=== PATIENT | male | born 1970 | race Caucasian/White ===

== ENCOUNTER → 2018-09-12 | Outpatient (REF) ==
[2018-09-12 14:41] LABS: THYROID STIMULATING HORMONE 1.32 uIU/mL (0.465-4.680)
[2018-09-12 14:49] LABS: PSA-TOTAL 0.81 ng/mL (0-4)
== END ==
LOC: ZLAB.WCH 13:58
PROVIDERS: Family Medicine
DX: Z01.89 Encounter for other specified special examinations (principal)
CPT/HCPCS: G0103

== ENCOUNTER → 2023-02-01 | Outpatient (CLI) | payer OTHER ==
[~2023-02-01] MED LIST: CEPHALEXIN500 M1 PO; LEVAQUIN 5500 MG/TA1 PO
== END ==
LOC: COL.RAD 07:02
DX: M50.021 Cervical disc disorder at C4-C5 level with myelopathy (principal); M50.022 Cervical disc disorder at C5-C6 level with myelopathy; M50.023 Cervical disc disorder at C6-C7 level with myelopathy; G95.89 Other specified diseases of spinal cord; D86.89 Sarcoidosis of other sites; R20.0 Anesthesia of skin; R53.1 Weakness; R25.2 Cramp and spasm; G82.50 Quadriplegia, unspecified
CPT/HCPCS: A9575

== ENCOUNTER 2023-02-15 22:53 | Emergency (ER) | payer OTHER ==
[~2023-02-15] VITALS: Ht 177.8 cm; Wt 68.2 kg
[2023-02-16 03:28] LABS: COLLECTION METHOD IN
[2023-02-16 04:25] LABS: URINE APPEARANCE Turbid (CLEAR/HAZY); URINE COLOR OTHER (YELLOW); URINE GLUCOSE Negative (NEGATIVE); URINE KETONE TRACE (NEGATIVE); URINE PROTEIN(semi-quant) 3+ (NEGATIVE)
[2023-02-16 04:26] LABS: URINE BLOOD 3+ (NEGATIVE); URINE NITRATE Positive (NEGATIVE)
[2023-02-16 04:30] LABS: SQUAMOUS EPITHELIAL 0-2 /hpf (0-10); URINE RBC >50 /hpf (0-2)
[2023-02-16 04:31] LABS: URINE BACTERIA Many /hpf (NONE SEEN)
[2023-02-16 05:04] VITALS: BP 105/75; PULSE 71; TEMP 97.6
[2023-02-16] MEDS ORDERED: LIORESAL 1010 MG/TAB PO (10:48)
[2023-02-16] MEDS ORDERED: LIORESAL20 MG PO (10:58)
[2023-02-16] MEDS ORDERED: ZANAFLEX2 MG PO (11:03)
[2023-02-16] MEDS ORDERED: GRALISE300 MG PO (11:07)
[2023-02-16] MEDS ORDERED: TYLENOL 500MG500 MG PO (11:08)
[2023-02-16] MEDS ORDERED: ROXICODONE 55 MG/TAB PO (11:09)
[2023-02-16] MEDS ORDERED: OXAYDO7.5 MG PO (11:11)
[2023-02-16] MEDS ORDERED: ALDACTONE 25MG25 M1 PO (11:11)
[2023-02-16] MEDS ORDERED: MELATONIN5 M1 SL (11:12)
[2023-02-16] MEDS ORDERED: TOPROL XL 25MG25 MG PO (11:12)
[2023-02-16] MEDS ORDERED: COLACE 100100 MG/CAP PO (11:13)
[2023-02-16] MEDS ORDERED: SENNA8.8 MG/5 M PO ×2 (11:14→11:15)
[2023-02-16] MEDS ORDERED: CONSTULOSE 20G/30ML PO (11:15)
[2023-02-16] MEDS ORDERED: ZANAFLEX 4MG TAB4 MG PO (11:21)
[2023-02-16] MEDS ORDERED: OMNICEF 300MG300 MG PO (13:17)
== END 2023-02-16 05:04 | disposition home or self-care (01) ==
LOC: COL.ER 22:53
PROVIDERS: Emergency Medicine
DX: T83.518A Infection and inflammatory reaction due to other urinary catheter, initial encounter (principal)

== ENCOUNTER 2023-02-16 09:30 | Day surgery (SDC) | payer OTHER ==
[~2023-02-16] VITALS: Ht 177.8 cm; Wt 65.0 kg
[2023-02-16] VITALS (7 sets, daily range): BP systolic 100–106; BP diastolic 62–91; PULSE 73–99; TEMP 97–97.3
[2023-02-16] MEDS ORDERED: LIORESAL 1010 MG/TAB PO (10:48)
--- NOTE | 2023-02-16 10:54 | NUR ---
DORA GEE CRNA PRESENT IN PATIENT ROOM TO DISCUSS PATIENT'S MEDICAL HISTORY AND ANESTHESIA PLAN FOR TODAY. PATIENT'S SPOUSE, ERIC, PRESENT IN ROOM. PER ERIC CERVANTES CAN GIVE THE PATIENT HIS AFTERNOON MEDS (BACLOFEN AND OXYCODONE). SEE MED REC FOR DETAILS.
[2023-02-16] MEDS ORDERED: LIORESAL20 MG PO (10:58)
[2023-02-16] MEDS ORDERED: ZANAFLEX2 MG PO (11:03)
[2023-02-16] MEDS ORDERED: GRALISE300 MG PO (11:07)
[2023-02-16] MEDS ORDERED: TYLENOL 500MG500 MG PO (11:08)
[2023-02-16] MEDS ORDERED: ROXICODONE 55 MG/TAB PO (11:09)
[2023-02-16] MEDS ORDERED: OXAYDO7.5 MG PO (11:11)
[2023-02-16] MEDS ORDERED: ALDACTONE 25MG25 M1 PO (11:11)
[2023-02-16] MEDS ORDERED: MELATONIN5 M1 SL (11:12)
[2023-02-16] MEDS ORDERED: TOPROL XL 25MG25 MG PO (11:12)
[2023-02-16] MEDS ORDERED: COLACE 100100 MG/CAP PO (11:13)
[2023-02-16] MEDS ORDERED: SENNA8.8 MG/5 M PO ×2 (11:14→11:15)
[2023-02-16] MEDS ORDERED: CONSTULOSE 20G/30ML PO (11:15)
[2023-02-16] MEDS ORDERED: ZANAFLEX 4MG TAB4 MG PO (11:21)
[2023-02-16] MEDS ORDERED: OMNICEF 300MG300 MG PO (13:17)
--- NOTE | 2023-02-16 14:25 | NUR ---
PATIENTS , ERIC, CALLED TO REQUEST TO LEAVE PATIENT'S IV IN FOR IVIG INFUSION THIS WEDNESDAY. PATIENT IS DIFFICULT TO GET IV ACCESS ON. SPOKE WITH SIDE GLUER ÁNGEL Wright RN ABOUT AUGUSTO REQUEST. INFORMED BY ÁNGEL Wright RN THAT A PROVIDER ORDER WOULD BE NEEDED FOR THIS TO BE COMPLETED. 1337: MET WITH DR. SINGH AND GOT ORDER THAT THE PATIENT COULD BE DISCHARGED HOME WITH IV FOR INFUSION ON WEDNESDAY. CALL PLACED TO DR. SINHG FOR HEPARIN FLUSH ORDERS. SEE ORDERS FOR ORDERS TO HEPARIN FLUSH IV AND DISCHARGE PATIENT TO HOME WITH IV IN PLACE. ÁNGEL VILLANUEVA ALSO SPOKE WITH REGARDING THE ORDERS TO DISCHARGE PATIENT HOME WITH IV.
--- NOTE | 2023-02-16 19:12 | NUR ---
[id number]: PT TO RECOVERY BAY 6 FROM PACU S/P SUPRAPUBIC CATH PLACEMENT OSTOMY SITE INTACT, DRAIN GAUZE JUST CHANGED IN PACU (SAT WITH CLEAR TO PINK FLUID (BLADDER SPASMS WITH FRESH OSTOMY). BROUGHT OT BEDSIDE UPON ARRIVAL L&O, PLACED ON MONITOR, VSS ON RA RECEIVED REPORT AND ASSUMED CARE OF PT FROM DEYANIRA CERON PT A&O X 4, BASELINE, DENIES PAIN/COMPLAINT. GIVEN WATER, TOLERATING WELL IV HEP LOCKED AND LEFT FOR HOME TRANSFUSION ON PER MD ORDER - PORTACATH CONTRAINDICATED AND VEINS GETTING SCLOROTIC FROM [facility] [facility]. SUPRAPUBIC DRAIN GAUZE CHANGED IN FRONT OF FAMILY WITH DEMO/INSTRUCTION. AMPLE SUPPLIES PROVIDED FOR HOME CARE TRANSITION. ALL QUESTIONS/CONCERNS ADDRESSED TO PT/FAMILY SATISFACTION. DRESSED AND TRANSFERED TO HOME CHAIR VIA LIFT. PT HAS REMAINED A&O, NAD, VSS ON RA, TOLERATING PO, IS WITHOUT SIGNIFICANT COMPLAINT, WC BOUND. MAC EMPTIED (TOTAL OUT 200ML PERES RED WITH MULTIPLE TINY CLOTS AND SCANT SEDIMENT). D/C INSTRUCTIONS, ANY FOLLOW UP REVIEWED AND HANDED TO PT. ALL QUESTIONS AND CONCERNS ADDRESSED TO PT SATISFACTION. TAKEN TO EXIT VIA W/C WITH ALL BELONGINGS AND PAPERWORK IN HAND BY FAMILY
== END 2023-02-16 16:10 | disposition home or self-care (01) ==
LOC: SDCO 09:30
DX: N21.0 Calculus in bladder (principal); N31.9 Neuromuscular dysfunction of bladder, unspecified; R33.9 Retention of urine, unspecified
CPT/HCPCS: J0665; J0690; J1644; J2371; J2405; J2704; J7120

== ENCOUNTER 2023-03-01 01:16 | Emergency (ER) | payer OTHER ==
[~2023-03-01] VITALS: Ht 177.8 cm; Wt 68.2 kg
[~2023-03-01 01:16] MED LIST changes: +ALDACTONE 25MG25 M1 PO; +COLACE 100100 MG/CAP PO; +CONSTULOSE 20G/30ML PO; +GRALISE300 MG PO; +LIORESAL 1010 MG/TAB PO; +LIORESAL20 MG PO; +MELATONIN5 M1 SL; +OMNICEF 300MG300 MG PO; +OXAYDO7.5 MG PO; +ROXICODONE 55 MG/TAB PO; +SENNA8.8 MG/5 M PO; +TOPROL XL 25MG25 MG PO; +TYLENOL 500MG500 MG PO; +ZANAFLEX 4MG TAB4 MG PO; +ZANAFLEX2 MG PO
[2023-03-01 02:38] LABS: COLLECTION METHOD IN
[2023-03-01 02:50] LABS: URINE APPEARANCE Hazy (CLEAR/HAZY); URINE BLOOD 3+ (NEGATIVE); URINE COLOR Yellow (YELLOW); URINE GLUCOSE Negative (NEGATIVE); URINE KETONE TRACE (NEGATIVE); URINE NITRATE Positive (NEGATIVE); URINE PROTEIN(semi-quant) 3+ (NEGATIVE); URINE UROBILINOGEN 0.2 E.U/dL (0.2-1.0)
[2023-03-01 03:07] LABS: URINE BACTERIA Rare /hpf (NONE SEEN); URINE RBC >50 /hpf (0-2)
[2023-03-01 03:23] LABS: CREATININE, serum 0.6 mg/dL (0.72-1.25); POTASSIUM 4.7 mmol/L (3.5-4.5)
[2023-03-01 03:57] LABS: BASO # 0.1 K/mm3 (0.0-0.2); BASO % 1.4 % (0.0-2.0); EOS # 0.2 K/mm3 (0.0-0.7); EOS % 4.3 % (0.0-4.0); GRAN # 1.9 K/mm3 (1.4-6.5); HEMOGLOBIN 12.4 g/dl (13.5-18.0); LYMPH % 25.7 % (20.0-51.0); MEAN CELL VOLUME 85 fl (80.0-100.0); MEAN CORPUSCULAR HEMOGLOBIN 29 pg (27-31); MEAN CORPUSCULAR HGB CONC 34 g/dl (33.0-37.0); MEAN PLATELET VOLUME 9.1 fl (7.4-10.4); MONO # 0.6 K/mm3 (0.1-0.6); MONO % 16.5 % (1.7-9.3); PLATELET COUNT 315 K/mm3 (130-400); RED BLOOD COUNT 4.24 M/mm3 (4.20-5.60); REDCELL DISTRIBUTION WIDTH-CV 13.9 % (11.5-14.5)
[2023-03-01 04:35] VITALS: BP 99/68; PULSE 77; TEMP 98.6
== END 2023-03-01 04:41 | disposition home or self-care (01) ==
LOC: COL.ER 01:16
PROVIDERS: Emergency Medicine
DX: T83.098A Other mechanical complication of other urinary catheter, initial encounter (principal); N39.0 Urinary tract infection, site not specified; E87.5 Hyperkalemia; Y73.8 Miscellaneous gastroenterology and urology devices associated with adverse incidents, not elsewhere classified

== ENCOUNTER 2023-05-30 23:39 | Emergency (ER) | payer OTHER ==
[~2023-05-30] VITALS: Ht 172.7 cm; Wt 68.2 kg
[~2023-05-30 23:39] MED LIST changes: -GRALISE300 MG PO; +LEVAQUIN 750MG750 M1 PO; +NEURONTIN300 MG/CAP PO
[2023-05-31 00:16] VITALS: TEMP 97.8
[2023-05-31 03:06] LABS: COLLECTION METHOD IN
[2023-05-31 03:30] VITALS: BP 108/67; PULSE 67
[2023-05-31 03:33] LABS: URINE APPEARANCE Hazy (CLEAR/HAZY); URINE COLOR Yellow (YELLOW); URINE PROTEIN(semi-quant) 1+ (NEGATIVE)
[2023-05-31 03:34] LABS: AMORPHOUS CRYSTAL Present (NOT PRESENT); MUCOUS Present (NOT PRESENT); URINE BACTERIA Many /hpf (NONE SEEN); URINE BLOOD 3+ (NEGATIVE); URINE GLUCOSE Negative (NEGATIVE); URINE KETONE Negative (NEGATIVE); URINE NITRATE Positive (NEGATIVE); URINE RBC >50 /hpf (0-2); URINE UROBILINOGEN 0.2 E.U/dL (0.2-1.0)
== END 2023-05-31 03:30 | disposition home or self-care (01) ==
LOC: COL.ER 23:39
PROVIDERS: Nurse Practitioner
DX: T83.018A Breakdown (mechanical) of other urinary catheter, initial encounter (principal)
CPT/HCPCS: 31860; A4314

== ENCOUNTER → 2023-06-16 | Outpatient (CLI) | payer OTHER ==
[~2023-06-16] MED LIST changes: +Gadoterate 15 ML VIAL IV ONE
== END ==
LOC: COL.RAD 12:10
DX: G95.9 Disease of spinal cord, unspecified (principal); D86.89 Sarcoidosis of other sites
CPT/HCPCS: A9575

== ENCOUNTER 2023-09-23 11:38 | Emergency (ER) | payer OTHER ==
[~2023-09-23 11:38] MED LIST changes: -Gadoterate 15 ML VIAL IV ONE
[2023-09-23 12:37] LABS: ARTERIAL BLD GAS O2 SATURATION 99.5 % (92-100); ARTERIAL BLD GAS TCO2 CT 24.1; ARTERIAL BLOOD GAS BASE EXCESS -2.3 (-2-2); ARTERIAL BLOOD GAS HCO3 22.8 meq/L (22-26); ARTERIAL BLOOD GAS PCO2 40.6 mmHg (35-45); ARTERIAL BLOOD GAS pH 7.37 (7.35-7.45)
[2023-09-23 12:38] LABS: ARTERIAL BLOOD GAS PO2 291.3 mmHg (80-100)
[2023-09-23] MEDS ORDERED: Iohexol 300 - 100 ML VIAL IV ONE (13:32)
[2023-09-23] MEDS ORDERED: NS 100 ML IV SCH (13:33)
[2023-09-23] MEDS ORDERED: cefTRIAXone 2 G in Water For Injection,Sterile 20 ML IV ONE (15:00)
[2023-09-23 16:02] VITALS: BP 129/74; PULSE 78
--- NOTE | 2023-09-23 17:01 | NUR ---
PT INTUBATED PER DR TELLEZ WITH C MAC 7.5ETT 24@LIPS NO COMPLICATIONS. COLOR CHANGE ON ETCO2. PT PLACED ON VENTILATOR PER CHARTED SETTINGS. TRANSPORTED TO CT SCAN PER AMBU BAG @ [id number] NO COMPLICATIONS. PLACED BACK ON VENT AT 1304.
--- NOTE | 2023-09-23 17:09 | NUR ---
PT PLACED ON TRANSPORT VENT AT THIS TIME. NO CONCERNS. TOLERATED WELL
== END 2023-09-23 16:20 | disposition short-term general hospital (02) ==
LOC: COL.ER 11:38
PROVIDERS: Emergency Medicine
DX: R41.82 Altered mental status, unspecified (principal); R79.89 Other specified abnormal findings of blood chemistry; I95.9 Hypotension, unspecified; N39.0 Urinary tract infection, site not specified
CPT/HCPCS: J0696; J2704; J7060; Q9967

== ENCOUNTER 2024-01-27 16:30 | Inpatient (IN) | payer OTHER ==
[2024-01-27] VITALS (33 sets, daily range): BP systolic 70–152; BP diastolic 45–84; PULSE 60–78; TEMP 91; O2SAT 91–98
[~2024-01-27] VITALS: Ht 177.8 cm; Wt 64.8 kg
[~2024-01-27 16:30] MED LIST changes: +DESYREL 50MG50 MG PO; +DHEA25 M3 PO; +HCTZ12.5TAB PO; +NEURO PO; +OMEGA-3 1000 MG1 CAP PO; +UROCIT-K 1010 MEQ PO; +ZINC7.5 MG PO; +[UNRECOGNIZED DRUG - OTHER] PO
[2024-01-27] MEDS ORDERED: NS 1,000 ML IV SCH ×2 (16:45→19:45)
[2024-01-27 16:54] LABS: BASO % 0.3 % (0.0-2.0); EOS # 0.1 K/mm3 (0.0-0.7); EOS % 1.9 % (0.0-4.0); GRAN # 5.6 K/mm3 (1.4-6.5); GRAN % 85.9 % (42.2-75.2); HEMATOCRIT 32.2 % (42.0-52.0); HEMOGLOBIN 10.9 g/dl (13.5-18.0); LYMPH # 0.2 K/mm3 (1.2-3.4); LYMPH % 3.2 % (20.0-51.0); MEAN CELL VOLUME 90 fl (80.0-100.0); MEAN CORPUSCULAR HEMOGLOBIN 30 pg (27-31); MEAN CORPUSCULAR HGB CONC 34 g/dl (33.0-37.0); MEAN PLATELET VOLUME 9.7 fl (7.4-10.4); MONO # 0.6 K/mm3 (0.1-0.6); MONO % 8.5 % (1.7-9.3); PLATELET COUNT 120 K/mm3 (130-400); RED BLOOD COUNT 3.59 M/mm3 (4.20-5.60)
[2024-01-27 17:12] LABS: PROTHROMBIN TIME 11.2 SECONDS (9.7-12.8)
[2024-01-27 17:14] LABS: ALANINE AMINOTRANSFERASE 107 U/L (0-55); ALBUMIN 3.6 g/dL (3.5-5.0); ALKALINE PHOSPHATASE 94 U/L (40-150); ANION GAP 10 mmol/L (7-16); AST,SGOT 90 U/L (5-34); BILIRUBIN,TOTAL 0.6 mg/dL (0.2-1.2); BLOOD UREA NITROGEN 22 mg/dL (8-26); C-REACTIVE PROTEIN 6.61 mg/dL (0.00-0.50); CALCIUM 9.8 mg/dL (8.4-10.2); CHLORIDE 98 mEq/L (98-107); CREATININE, serum 0.97 mg/dL (0.72-1.25); GLUCOSE 89 mg/dL (70-99); LIPASE 24 U/L (8-78); POTASSIUM 4.1 mEq/L (3.5-4.5); SODIUM 136 mEq/L (136-145); TOTAL PROTEIN 6.8 g/dl (6.2-8.1)
[2024-01-27 17:24] LABS: TROPONIN-I < 0.010 ng/mL (0.00-0.033)
[2024-01-27] MEDS ORDERED: Vancomycin 1.5 GM,Special Dose/Pharmacy Prepared 1.5 GM in NS 250 ML IV ONE (17:45)
[2024-01-27 18:55] LABS: COLLECTION METHOD IN
[2024-01-27 19:04] LABS: URINE APPEARANCE TURBID (CLEAR/HAZY); URINE BLOOD 3+ (NEGATIVE); URINE COLOR RED (YELLOW); URINE GLUCOSE NEGATIVE (NEGATIVE); URINE KETONE NEGATIVE (NEGATIVE); URINE NITRATE POSITIVE (NEGATIVE); URINE PROTEIN(semi-quant) 3+ (NEGATIVE); URINE UROBILINOGEN 0.2 E.U/dL (0.2-1.0)
[2024-01-27 19:19] LABS: MUCOUS PRESENT (NOT PRESENT); URINE BACTERIA MANY /hpf (NONE SEEN); URINE RBC >50 /hpf (0-2); URINE WBC >50 /hpf (0-2)
[2024-01-27] MEDS ORDERED: Acetaminophen 325 MG TAB PO PRN (19:45)
[2024-01-27] MEDS ORDERED: Ondansetron 4 MG/2 ML VIAL IV PRN (19:45)
[2024-01-27] MEDS ORDERED: DITROPAN XL10 MG PO (20:35)
--- NOTE | 2024-01-27 20:40 | NUR ---
Received report from ED nurse, Lina.
--- NOTE | 2024-01-27 20:54 | NUR ---
Patient arrives to ICU room 6 via ED stretcher. Patient sleeping soundly upon arrival to unit. Transferred to ICU bed with draw sheet and two-person assist. Arrives receiving levophed drip, see IV drip titrations; no other fluids or medications infusing at this time. Patient has a chronic suprapubic catheter that was exchanged in ED per report. Patient also has a condom cath in place due to frequent "leaking," per the patient's , Tamie. Both drainage bags are to dependent drainage and exhibit cloudy tea-colored output. Initial vitals within normal limits, however, this RN was unable to get a temperature reading orally or axillary. Initial rectal temperature of 91 degrees F. Hospitalist, Guillermo, notified. Orders received to initiate bear hugger and to check a blood glucose.
[2024-01-27] MEDS ORDERED: Sennosides/Docusate 8.6-50 MG TAB PO SCH (21:00)
--- NOTE | 2024-01-27 21:30 | NUR ---
All of patient's belongings sent home with , Tamie. Tamie denies the patient having glasses, hearing aids, or dentures.
[2024-01-28] VITALS (447 sets, daily range): BP systolic 87–122; BP diastolic 44–95; PULSE 82–95; TEMP 94.8–99.1; O2SAT 93–98
--- NOTE | 2024-01-28 00:13 | NUR ---
Patient alert and partially oriented. He is more awake than he was during admitting assessment. Continues to repeat himself several times. Pills administered whole and in applesauce; patient tolerated well.
[2024-01-28 04:33] LABS: HEMOGLOBIN 10.5 g/dl (13.5-18.0); MEAN CELL VOLUME 87 fl (80.0-100.0); MEAN CORPUSCULAR HEMOGLOBIN 31 pg (27-31); MEAN CORPUSCULAR HGB CONC 35 g/dl (33.0-37.0); MEAN PLATELET VOLUME 9.8 fl (7.4-10.4); PLATELET COUNT 114 K/mm3 (130-400); RED BLOOD COUNT 3.42 M/mm3 (4.20-5.60); REDCELL DISTRIBUTION WIDTH-CV 14.3 % (11.5-14.5)
[2024-01-28 04:35] LABS: HEMATOCRIT 29.8 % (42.0-52.0)
[2024-01-28 04:47] LABS: ALBUMIN 3.1 g/dL (3.5-5.0); BILIRUBIN,TOTAL 0.7 mg/dL (0.2-1.2); CALCIUM 9.2 mg/dL (8.4-10.2); CREATININE, serum 0.74 mg/dL (0.72-1.25); TOTAL PROTEIN 5.9 g/dl (6.2-8.1)
[2024-01-28 05:07] LABS: BAND 21 % (0-10); LYMPHOCYTE 1 % (20.0-51.0); NEUTROPHILS 72 % (42.0-75.2); PLATELET ESTIMATE NORMAL (NORMAL)
--- NOTE | 2024-01-28 07:15 | NUR ---
PT RESTING IN BED UPON ENTERING, RISE AND FALL OF CHEST NOTED. LEVO RUNNING AT 16.5 MLS/HR AND NS RUNNING AT 125 MLS/HR. SUPRAPUBIC MAC AND CONDOM CATH DRAINING. PT DENIES NEEDS. OSTOMY TO LEFT ABDOMEN NOTED. PATCH OF HARD SKIN NOTED TO LEFT HEEL, NO DRAINAGE NOTED. BED IN LOWEST POSITION, BED ALARM ON, CALL LIGHT IN REACH AND DOOR LEFT OPEN WITH CURTAINS PULLED.
--- NOTE | 2024-01-28 07:44 | NUR ---
This RN provided , Tamie, with update at this time.
[2024-01-28] MEDS ORDERED: tiZANidine 4 MG TAB PO SCH ×2 (08:00→21:00)
[2024-01-28] MEDS ORDERED: Pantoprazole 40 MG in NS 10 ML IV SCH (09:00)
[2024-01-28] MEDS ORDERED: Patient's Own Medication Item PO SCH (12:00)
--- NOTE | 2024-01-28 12:22 | NUR ---
PT REPORTS CONCERN THAT SUPRAPUBIC CATHETER IS CLOGGED AND THAT CONDOM CATH IS LEAKING. PT REPORTS THAT WHEN CONDOM CATH LEAKS THAT USUALLY MEANS THE SUPRAPUBIC CATHETHER IT CLOGGED. URINE NOTED FLOWING FROM CONDOM CATH AND SUPRAPUBIC CATHETER. LEAKING NOTED TO CONDOM CATH, OLD ONE REMOVED, PERICARE DONE, NEW CONDOM CATH IN PLACE. PT AND FAMILY UPDATED THAT SUPRAPUBIC CATHETER WAS REPLACED 01/26 PER NIGHT RN. BLADDER SCAN SHOWING < 5 MLS OF URINE IN BLADDER. OSTOMY BAG CHANGED. PT DENIES NEEDS. SCDS ON, HEELS FLOATED ON PILLOWS. BED IN LOWEST POSITION, CALL LIGHT IN REACH, BED ALARM ON
--- NOTE | 2024-01-28 13:24 | NUR ---
[facility] CALLED WITH NO ANSWER, OFFICE CLOSED.
--- NOTE | 2024-01-28 14:55 | NUR ---
soil sort worker met with patient's spouse, Tamie #[phone] to discuss discharge planning. Patient's primary care provider is Dr Land and patient has advance directives (Detailed Living Will and DPOA for HC) on file. Patient resides at home with spouse and receives full care due to paraplegia due to illness. Spouse denies unmet needs at this time. Patient will return home upon discharge. Discharge plan: Home with spouse.
[2024-01-28] MEDS ORDERED: Omega-3 Fatty Acid Esters (OTC) 1,000 MG CAP PO SCH (15:00)
--- NOTE | 2024-01-28 15:38 | NUR ---
MICRO CALLED THIS NURSE AND ASKED IF URINE CULTURE IS NEEDED DUE TO POSITIVE URINE RESULTS. ATTEMPTED TO CALL HOSPITALIST WITH NO ANSWER.
--- NOTE | 2024-01-28 17:25 | NUR ---
PT REPORTS BLADDER SPASMS AND UPDATED ON MEDS GIVEN FOR SPASMS DURING THIS SHIFT. PT REPORTS THAT HE TAKES ONE MORE MED FOR BLADDER SPASMS AND DITROPAN HELD ON MED REC. THIS NURSE UPDATED HOSPITALIST AND GIVEN A TELEPHONE ORDER TO RESTART MED. THIS NURSE REPEATED ORDER OF 10MG DITROPAN ONCE A DAY AT 1500. OKAY TO RESTART PER HOSPITALIST WITH FIRST DOSE NOW.
--- NOTE | 2024-01-28 20:09 | NUR ---
PATIENT IN BED WITH FAMILY AT BEDSIDE. PATIENT A&OX4, C/O MUSCLE SPASMS IN BILATERAL LOWER EXTREMETIES. PATIENT HAS SUPRAPUBIC, AND A CONDOM CATHETER D/T BLADDER SPASMS. BOTH CATHETERS ARE FLOWING WELL WITH NO INDICATION OF URINARY BLOCKAGE, URINE IS CLEAR AND YELLOW IN COLOR. ONLY A SCANT AMOUNT OF URINE IS GOING THROUGH HIS CONDOM CATHETER. EARLIER PATIENT HAD BEEN TAKEN OFF OF LEVOPHED D/T STABLE BLOOD PRESSURES, AND BLOOD PRESSURES HAVE REMAINED STABLE.
[2024-01-28] MEDS ORDERED: Baclofen 10 MG TAB PO SCH ×2 (21:00)
[2024-01-29] VITALS (587 sets, daily range): BP systolic 115–138; BP diastolic 71–79; PULSE 66–82; TEMP 97.2–98.8; O2SAT 93–97
[2024-01-29] MEDS ORDERED: traZODone 50 MG TAB PO SCH (00:23)
[2024-01-29] MEDS ORDERED: Methocarbamol 500 MG TAB PO ONE (00:30)
--- NOTE | 2024-01-29 00:38 | NUR ---
PT C/O INCREASING SPASMS, PROVIDER NOTIFIED WITH ORDER TO FOLLOW. PT IS BECOMING SLIGHTLY AGITATED, AND CURSING TO HIMSELF. PATIENT BECAME UPSET WHEN THIS NURSE TOUCHED THE RAILING ON THE BED, AND SAID WHEN THE RAILING IS TOUCHED IT HURTS HIM. PATIENT HAD ME CHECK HIS IV SITES SEVERAL TIMES FOR INFILTRATION, IN WHICH THERE WAS NONE. BOTH R AND L FOREARM SITES ARE CLEAN DRY INTACT WITH NO REDNESS, SWELLING, IRRITATION, OR SIGNS OF INFILTRATION. PT STATES CONCERNS THAT HIS SUPRAPUBIC MAC WAS BLOCKED, THIS NURSE CHECKED AND PT IS DRAINING APPX 60ML/HR FROM SUPRAPUBIC, AND <5ML/HR FROM CONDOM CATH. PATIENT HAD ME CHECK CONDOM CATH SECUREMENT SEVERAL TIMES TO ENSURE IT WAS NOT TO TIGHT AND CUTTING OFF CIRCULATION. THIS NURSE OBSERVED NO S/SX OF CATHETER SECUREMENT CUTTING OFF CIRCULATION. SUPRAPUBIC DRESSING CHANGED DO TO SCANT SOILAGE, PATIENT STATES THAT THIS IS LIKELY BECAUSE THE SUPRAPUBIC CATHETER IS BLOCKED. I FELT NO DESTENTION OF THE BLADDER, BUT OFFERED TO BLADDER SCAN TO WHICH HE DECLINED. AREA WAS CLEANSED. PATIENT EXPRESSED QUALMS ABOUT CLEANSING OF THE AREA BUT WAS PUT AT EASE WHEN I EXPLAINED I WAS DOING THIS TO PROTECT HIS SKIN. PATIENT CONTINUES TO STATE OVER AND OVER THAT HIS HAS PROVIDED US WITH A MED LIST, AND THIS NURSE CONTINUES TO EXPRESS KNOWLEDGE OF THE MEDLIST PROVIDED, AND THE TIMES I HAVE CONTACTED THE PROVIDER ABOUT HIS CONCERNS.
--- NOTE | 2024-01-29 02:47 | NUR ---
Pt resting comfortably after administration of 500mg of robaxin and 50mg of trazadone. No further complaints of spasms at this time.
[2024-01-29 05:07] LABS: MEAN CELL VOLUME 87 fl (80.0-100.0); MEAN CORPUSCULAR HGB CONC 35 g/dl (33.0-37.0); PLATELET COUNT 84 K/mm3 (130-400); RED BLOOD COUNT 2.93 M/mm3 (4.20-5.60); REDCELL DISTRIBUTION WIDTH-CV 14.6 % (11.5-14.5)
[2024-01-29 05:11] LABS: HEMATOCRIT 25.6 % (42.0-52.0); MEAN CORPUSCULAR HEMOGLOBIN 31 pg (27-31)
[2024-01-29] MEDS ORDERED: Carboxymethylcellulose PF Ophth 0.4 ML DROPPERETTE OP PRN (05:15)
--- NOTE | 2024-01-29 05:16 | NUR ---
PATIENT MAKES C/O SPASMS, STATES HE NEEDS HIS MEDICATION EARLIER THAN 0900 WHEN IT IS SCHEDULED. MADE CONTACT WITH RICHARD MERCADO AND JESS GIVES THE OKAY TO GIVE HIM THOSE MEDICATIONS AT 0600. PATIENT ALSO REQUESTING TO USE EYE DROPS FAMILY BROUGHT IN FOR HIM, JESS OK'D FOR THE ORDER FOR SYSTANE EYE DROPS TO BE PUT ON HIS JUL PRN
[2024-01-29 05:33] LABS: ALBUMIN 2.8 g/dL (3.5-5.0); BILIRUBIN,TOTAL 0.5 mg/dL (0.2-1.2); CALCIUM 8.5 mg/dL (8.4-10.2); CREATININE, serum 0.56 mg/dL (0.72-1.25); POTASSIUM 3.2 mEq/L (3.5-4.5); TOTAL PROTEIN 5.8 g/dl (6.2-8.1)
[2024-01-29] MEDS ORDERED: Potassium Bicarbonate/Citrate 20 MEQ Effervescent TAB PO SCH (06:00)
[2024-01-29 06:27] LABS: BAND 26 % (0-10); LYMPHOCYTE 3 % (20.0-51.0); NEUTROPHILS 71 % (42.0-75.2); OVALOCYTES 1+; PLATELET ESTIMATE NORMAL (NORMAL)
--- NOTE | 2024-01-29 07:00 | NUR ---
REPORT RECEIVED FROM DORA Marcus RN. PT ALERT AND ORIENTED. REPOSITIONED TO LEFT SIDE AT THIS TIME. PT OFFERS NO COMPLAINTS BUT WOULD LIKE HIS HOME MEDS ORDERED WITH THE SAME TIME SCHEDULE WHAT HE TAKES AT HOME; WILL MAKE PROVIDER AWARE. SUPRAPUBIC CATH IN PLACE, OSTOMY TO LEFT ABD; CLEAN, DRY, AND INTACT.
[2024-01-29] MEDS ORDERED: Baclofen 10 MG TAB PO SCH (15:00)
--- NOTE | 2024-01-29 16:17 | NUR ---
PT TRANSFERED TO [facility] AND REPORT GIVEN TO DEYANIRA SAENZ. ALL BELONGINGS TAKEN WITH PT TO NEW ROOM. THIS RN CALLED PT'S AND MADE HER AWARE OF TRANSFER.
--- NOTE | 2024-01-29 19:15 | NUR ---
Assessment complete. A&Ox3. Denies nausea/shortness of breath. VS stable. States he is starting to have more spasms-inquiring if his home medications can be restarted. Will contact RICHARD Li for new orders. TELE reporting SR. Right FA/Left FA INT flushes without difficulty. Repositioned in bed with pillow support. Noted to have +2 edema to lower extremities. Suprapubi cath with clear yellow urine. External cath in place per request. Plan of care discussed for this shift to include meds/pain control/repostioning. Verbalizes understanding. WIll continue to monitor.
--- NOTE | 2024-01-29 19:51 | NUR ---
Spoke with Angelique Li requesting that his gabapentin/oxycodone be restarted. New orders placed.
[2024-01-29] MEDS ORDERED: oxyCODONE 5 MG TAB PO PRN (20:00)
[2024-01-29] MEDS ORDERED: Gabapentin 300 MG CAP PO SCH (21:00)
[2024-01-30] VITALS (7 sets, daily range): BP systolic 99–144; BP diastolic 62–79; PULSE 68–80; TEMP 97.8–98.2
--- NOTE | 2024-01-30 00:18 | NUR ---
Patient resting in bed comfortably. Requesting to be repositioned at 0200. Will reposition at that time. Currently On right side with pillow support to arms and legs. Friend remains at bedside. Will monitor.
--- NOTE | 2024-01-30 02:00 | NUR ---
Repositioned to left side with pillow support. Denies current needs. Call light in reach. Will monitor.
--- NOTE | 2024-01-30 05:27 | NUR ---
Patient had an uneventful night. Denied nausea/shortness of breath. Home pain med regimen restarted per patient request. Repositioned with pillow support. Took pills whole in apple sauce without difficulty. VS stable. Tele reporting SR. INT to right FA and left FA flush without difficulty. Friend is at bedside. No s/s of distress noted. Will monitor.
--- NOTE | 2024-01-30 06:44 | NUR ---
Bedside report given to DEYANIRA Guthrie.
--- NOTE | 2024-01-30 06:50 | NUR ---
PATIENT AWAKE AND ALERT SITTIGN UP IN BED. PATIENT RESTING COMFORTABLY. HE DENIES ANY NEEDS OR COMPLAINATS AT THIS TIME. CALL LIGHT IWTHIN REACH.
[2024-01-30 08:06] LABS: BASO % 0.1 % (0.0-2.0); EOS # 0.1 K/mm3 (0.0-0.7); EOS % 1.8 % (0.0-4.0); GRAN # 5.5 K/mm3 (1.4-6.5); GRAN % 80.6 % (42.2-75.2); LYMPH # 0.5 K/mm3 (1.2-3.4); MEAN CELL VOLUME 89 fl (80.0-100.0); MEAN CORPUSCULAR HGB CONC 34 g/dl (33.0-37.0); MEAN PLATELET VOLUME 10.6 fl (7.4-10.4); MONO # 0.6 K/mm3 (0.1-0.6); MONO % 8.6 % (1.7-9.3); PLATELET COUNT 93 K/mm3 (130-400); RED BLOOD COUNT 3.02 M/mm3 (4.20-5.60); REDCELL DISTRIBUTION WIDTH-CV 14.7 % (11.5-14.5)
[2024-01-30 08:17] LABS: ALBUMIN 2.7 g/dL (3.5-5.0); BILIRUBIN,TOTAL 0.6 mg/dL (0.2-1.2); CALCIUM 9.3 mg/dL (8.4-10.2); CREATININE, serum 0.54 mg/dL (0.72-1.25); MAGNESIUM 1.6 mg/dL (1.6-2.6); POTASSIUM 3.7 mEq/L (3.5-4.5); TOTAL PROTEIN 6.1 g/dl (6.2-8.1)
[2024-01-30 08:28] LABS: HEMATOCRIT 26.9 % (42.0-52.0); HEMOGLOBIN 9.1 g/dl (13.5-18.0); MEAN CORPUSCULAR HEMOGLOBIN 30 pg (27-31)
[2024-01-30] MEDS ORDERED: clonazePAM 0.25 MG TAB PO PRN (16:45)
[2024-01-30] MEDS ORDERED: Cefepime 2 G in Water For Injection,Sterile 20 ML IV SCH (18:00)
[2024-01-30] MEDS ORDERED: Magnesium Sulfate 4% 50 ML IV ONE (19:15)
--- NOTE | 2024-01-30 19:50 | NUR ---
Patient resting in bed with friend at bedside. Denies any pain. Assessment complete. Suprapubic catheter is leaking a signifigant amount around the insertion site of the abdomen, still draining clear yellow urine. Spoke with hospitalist Yolanda about this and states we had to do change the bedding and gown because there was so much drainage. Recievied order to change catheter. IV in left and right forearm flush easily without complications. Colostomy bag CDI, stoma pink in color. Condom cath in place with incontinence wrap around. Bed bath provided and lotion applied. Bed in low position and all 4 side rails up.
--- NOTE | 2024-01-30 21:00 | NUR ---
Suprapubic cathere changed with 16f murry and 30mL inflated to the balloon by DEYANIRA Wolfe from the ED. Patient tolerated insertion well. Catheter draining well without complications. No leaking at the site.
[2024-01-31] VITALS (15 sets, daily range): BP systolic 105–159; BP diastolic 68–87; PULSE 65–79; TEMP 97.6–98.6
[2024-01-31 07:12] LABS: BASO % 0.3 % (0.0-2.0); EOS # 0.1 K/mm3 (0.0-0.7); EOS % 1.9 % (0.0-4.0); GRAN # 5.2 K/mm3 (1.4-6.5); GRAN % 75.5 % (42.2-75.2); LYMPH # 0.6 K/mm3 (1.2-3.4); LYMPH % 8.9 % (20.0-51.0); MEAN CELL VOLUME 87 fl (80.0-100.0); MEAN CORPUSCULAR HGB CONC 34 g/dl (33.0-37.0); MEAN PLATELET VOLUME 9.7 fl (7.4-10.4); MONO # 0.9 K/mm3 (0.1-0.6); MONO % 12.7 % (1.7-9.3); PLATELET COUNT 101 K/mm3 (130-400); RED BLOOD COUNT 3.24 M/mm3 (4.20-5.60); REDCELL DISTRIBUTION WIDTH-CV 14.5 % (11.5-14.5)
[2024-01-31 07:15] LABS: HEMATOCRIT 28.2 % (42.0-52.0); HEMOGLOBIN 9.6 g/dl (13.5-18.0); MEAN CORPUSCULAR HEMOGLOBIN 30 pg (27-31)
[2024-01-31 07:22] LABS: ALBUMIN 2.7 g/dL (3.5-5.0); BILIRUBIN,TOTAL 0.5 mg/dL (0.2-1.2); CALCIUM 8.7 mg/dL (8.4-10.2); CREATININE, serum 0.54 mg/dL (0.72-1.25); POTASSIUM 3.5 mEq/L (3.5-4.5); TOTAL PROTEIN 6.1 g/dl (6.2-8.1)
[2024-01-31] MEDS ORDERED: Potassium Bicarbonate/Citrate 20 MEQ Effervescent TAB PO SCH ×2 (08:00→08:30)
[2024-01-31] MEDS ORDERED: *Potassium Replacement Protocol MC SCH (08:30)
--- NOTE | 2024-01-31 08:54 | NUR ---
Patient resting in bed, alert and oriented x 4, he ate most of his breakfast. Doctor just saw him. Aware of IV antibiotics at home. Assessment completed. Meds taken with applesauce. Potassium replacement per protocol. Colostomy bag with some loose BM and gas, gas released. Suprapubid catheter CDI. Yellow urine output. Telemetry in place NSR. No further needs at this time. Continue monitoring.
--- NOTE | 2024-01-31 13:35 | NUR ---
D: Slunk Skinner stopped by room to follow up with pt A: Pt doing well, resting and getting ready for lunch. P: Slunk Skinner informed pt that if he needed anything from the silk weaver area to let me know. Slunk Skinner will follow up as needed.
--- NOTE | 2024-01-31 14:41 | NUR ---
Patient call stating he has some chest tightening. at bedside. He requested to check his lungs since he feels he can not breath well. Both, pt and are afraid of develop mucus in his lungs, something that happened in previous hospitalizations. Call placed to Nila RAMOS, VS taken, some HTN 150/82 HR 76 O2 SAT 93 RA, R 18, tept 98. RT was added with breathing treatments.
--- NOTE | 2024-01-31 15:04 | NUR ---
out of school hours care worker met with patient's spouse, per her request. Spouse states that she has private hired nursing, aide support as well as volunteers that help day/night for patient's care. Worker and spouse discussed options for continued need for IV antibiotic twice daily. Spouse stated that he historically had a peripheral line and took outpatient IV antibiotics through the [facility], however, this does not seem feasible to spouse at this time. Worker provided information on skilled care at the [facility], which is preferred by spouse, or [facility] specialty hospital. Worker confirmed, with [facility], that patient's insurance does not offer a [facility] care benefit. Worker gave the referral to Romulo at [facility] and notifed spouse of the above information.
--- NOTE | 2024-01-31 17:21 | NUR ---
Patient is concern about his BP since it has been lizbet all day. He states he has a headache related to high BP. Call placed to Dr. Gonzalez to express those concerns. She will review pts needs and evaluate. No further orders. Pt updated.
[2024-01-31] MEDS ORDERED: Albuterol 0.042% Neb Soln 1.25 MG/3 ML UD IH SCH (19:00)
[2024-01-31] MEDS ORDERED: Acetylcysteine Neb Soln 200 MG/ML 4 ML VIAL IH SCH (19:00)
--- NOTE | 2024-01-31 20:12 | NUR ---
Hospitalist Yolanda called for patients BP of 159/73 and patient stating he feels like his head is about to explode and feeling anxious. When rechecked an hour later BP was 157/83 with same complaints and slight temp of 99.5. Recieved orders for 5mg IV hydralazine once.
[2024-01-31] MEDS ORDERED: hydrALAZINE 20 MG/ML 1 ML VIAL IV ONE (20:15)
--- NOTE | 2024-01-31 20:20 | NUR ---
Patient resting in bed with son at bedside. Denies any pain at this time. Needs met. Assessment complete. IVs in left and right forearms flushe easlily without complications. Bed in low position.
[2024-02-01] VITALS (15 sets, daily range): BP systolic 109–177; BP diastolic 54–89; PULSE 65–83; TEMP 96.4–98.1
[2024-02-01 07:19] LABS: BASO % 0.4 % (0.0-2.0); EOS # 0.3 K/mm3 (0.0-0.7); EOS % 3.7 % (0.0-4.0); GRAN # 4.8 K/mm3 (1.4-6.5); GRAN % 67.3 % (42.2-75.2); LYMPH # 0.9 K/mm3 (1.2-3.4); LYMPH % 12.9 % (20.0-51.0); MEAN CELL VOLUME 88 fl (80.0-100.0); MEAN CORPUSCULAR HGB CONC 33 g/dl (33.0-37.0); MEAN PLATELET VOLUME 9.4 fl (7.4-10.4); MONO % 14.6 % (1.7-9.3); PLATELET COUNT 113 K/mm3 (130-400); RED BLOOD COUNT 3.26 M/mm3 (4.20-5.60); REDCELL DISTRIBUTION WIDTH-CV 14.6 % (11.5-14.5)
[2024-02-01 07:21] LABS: HEMATOCRIT 28.8 % (42.0-52.0); HEMOGLOBIN 9.6 g/dl (13.5-18.0); MEAN CORPUSCULAR HEMOGLOBIN 29 pg (27-31)
[2024-02-01 07:35] LABS: ALBUMIN 2.6 g/dL (3.5-5.0); BILIRUBIN,TOTAL 0.6 mg/dL (0.2-1.2); CALCIUM 9.2 mg/dL (8.4-10.2); CREATININE, serum 0.54 mg/dL (0.72-1.25); MAGNESIUM 1.8 mg/dL (1.6-2.6); TOTAL PROTEIN 6.4 g/dl (6.2-8.1)
--- NOTE | 2024-02-01 08:50 | NUR ---
patient alert and oriented x4. patient on bedrest, on room air, telemetry inplaced.patient repositioned to right side. report just had breakfast and denies knowing if in pain or not. patient given morning medication and denies any other needs at this time. call light within reach. bed at lowest position.
--- NOTE | 2024-02-01 09:41 | NUR ---
protective services social worker met with patient and spouse and advised that patient's insurance doesn't have skilled care benefits for swing bed. To secure IV antibiotics needed for the next 12 days, we discussed [facility]. Worker provided the Medicare.gov share for LTAC and arranged Romulo with [facility] to meet with patient and spouse. Romulo will submit for insurance authorization this date. Patient and spouse verbalize acceptance to this plan. Worker ordered [facility] for possible transfer today. Worker collaborated with Dr Aponte and the multidisciplinary team regarding the above information. Dicharge plan: Insurance Auth submitted for [facility].
[2024-02-01] MEDS ORDERED: Lisinopril 10 MG TAB PO ONE (16:45)
[2024-02-01] MEDS ORDERED: hydrALAZINE 25 MG TAB PO PRN (17:15)
--- NOTE | 2024-02-01 19:17 | NUR ---
Patient stated he cleaared a small amount of brown sputum that his suctioned out this afternoon.
--- NOTE | 2024-02-01 20:40 | NUR ---
Patient resting in bed. Denies any pain at this time. Needs met. Assessment complete. IVs in left and right forearm flush easily without complications. Suprapubic catheter in place draining properly. Colostomy bag intact. Call light and personal items in reach. Bed in low position
[2024-02-02] VITALS (12 sets, daily range): BP systolic 101–144; BP diastolic 65–79; PULSE 71–90; TEMP 97.7–98.7
[2024-02-02] MEDS ORDERED: Lisinopril 5 MG TAB PO SCH (09:00)
--- NOTE | 2024-02-02 16:19 | NUR ---
drop pit worker contacted Romulo from [facility] and was notified they were waiting on insurance approval still. secure emailed updates to Romulo at [facility]. Discharge plan: [facility]
--- NOTE | 2024-02-02 19:05 | NUR ---
Patient resting in bed with at bedside. Denies any pain at this time. Needs met. Water refilled. Assessment complete. IVs in left and right forearm flush easily without complications. Soft press call light in reach. Bed in low position.
[2024-02-03] VITALS (13 sets, daily range): BP systolic 71–119; BP diastolic 54–72; PULSE 75–90; TEMP 98.5–99.7
[2024-02-03] MEDS ORDERED: Acetylcysteine Neb Soln 200 MG/ML 4 ML VIAL IH PRN (06:30)
[2024-02-03] MEDS ORDERED: Albuterol 0.042% Neb Soln 1.25 MG/3 ML UD IH PRN (06:30)
--- NOTE | 2024-02-03 08:44 | NUR ---
Pt resting in bed with no family present at this time. Pt laying on R side with heels floated. 20G INT in L&R forearm. Pt requested for head to be elevated and TV to be turned on. Bed in lowest position and soft touch call button within reach. No concerns or needs at this time.
--- NOTE | 2024-02-03 09:24 | NUR ---
RN inquired to AILEEN about [facility] and need for patient's IV to be changed today. AILEEN spoke with Romulo at [facility] to inquire about status of authorization. Romulo stated he is hopeful the authorization will be provided today and [facility] has a bed available for admission today. Romulo also stated that if patient is due to have IV changed to proceed with that. AILEEN informed RICHARD Dotson of hope of getting authorization. Discharge plan: [facility]
--- NOTE | 2024-02-03 11:01 | NUR ---
AILEEN received call from Romulo at [facility] stating that authorization was denied by insurance. He provided number for attending to call for Peer to Peer to appeal denial. AILEEN notified Dr. Aponte to provide P2P number.
--- NOTE | 2024-02-03 13:59 | NUR ---
Pt resting in bed with head elevated. belongings and soft touch call light within reach. No concerns or needs at this time. reported to primary nurse.
--- NOTE | 2024-02-03 16:05 | NUR ---
AILEEN notified by Dr. Aponte that he is unable to contact patient's insurance with information provided. AILEEN verified number with Romulo at [facility]. AILEEN called P2P number of [phone] and provided reference number [id number]. [facility] scheduled P2P with Dr. Aponte for tomorrow. AILEEN was notified by DEYANIRA Chong that was asking for update. AILEEN called and informed her of insurance denial and pending P2P. Dr. Aponte and RN notified of pending P2P scheduled for tomorrow. AILEEN notified Romulo with [facility] who stated they have a hold on bed for patient.
--- NOTE | 2024-02-03 19:40 | NUR ---
Patient resting in bed. Denies any pain at this time. Needs met. Assessment complete. IVs in left hand and right forearm flush easliy without complications. Call light in reach. Bed in low position and bed alarm on.
--- NOTE | 2024-02-03 22:36 | NUR ---
RT INFORMED BY RN THAT PT IS REQUESTING TO "SKIP" WEARING THE TRILOGY TONIGHT.
[2024-02-04] VITALS (13 sets, daily range): BP systolic 100–112; BP diastolic 60–70; PULSE 73–93; TEMP 98.2–99.3
--- NOTE | 2024-02-04 11:19 | NUR ---
SW met with patient and family to discuss recommendation of home health services. Patient agreeable. Medicare.gov list of area agencies provided for review. Family report that patient has used [facility] in the past and would like to use them again. Referral sent via secure email to [facility]. Discharge plan: Home with HH
[2024-02-04] MEDS ORDERED: Gabapentin 300 MG CAP PO SCH (12:00)
[2024-02-04] MEDS ORDERED: oxyCODONE 5 MG TAB PO SCH ×2 (12:00→18:00)
--- NOTE | 2024-02-04 12:24 | NUR ---
SW asked to contact [facility] insurance to have attending changed to Dr. Simpson for Peer 2 Peer. [facility] appeal line contacted and change was made for P2P to be completed today. Dr. Simpson notified by Director Corina Mancia.
--- NOTE | 2024-02-04 12:36 | NUR ---
01/31/24 - Order was received to place a PICC line in patient for termite technician antibiotics. Discuess PICC procedure with patient and . They both consented to the line. The left for the procedure. While assessing the patient to start the procedure the patient expressed that his arms were both contracted. His left arm is completely contracted and the right arm is able to be manipulated out a small amount but not enough to be able to safely insert a needle into his arm for the PICC placement. Spoke with Dr. Gonzalez and Nila SNEED about my concerns. I do not recommend a PICC line or MIDLINE is the best option for the patient. I reassessed the patient again and discussed with him that since we are not able to extend his arm out he is not a candidate for a PICC and he verbalized understanding. Spoke with the patients nurse and she will call the patients to update her.
[2024-02-04] MEDS ORDERED: Cefepime 2 G in Water For Injection,Sterile 20 ML IV SCH (14:00)
--- NOTE | 2024-02-04 15:00 | NUR ---
PATIENT DOWN TO OR FOR CENTRAL LINE PLACEMENT. ALERT AND ORIENTED.
--- NOTE | 2024-02-04 15:16 | NUR ---
Dr Simpson completed the Peer to Peer for [facility] and the insurance denied. Worker met with patient and spouse and confirmed that both are willing to have IV done at home. Spouse state they have used [facility] and will use again and that they have [facility] services set up at this time. Worker gave a referral and faxed clinical information to [facility] and also [facility] and are awaiting calls. Spouse states that she will transport patient back home in their handicap van. Patient will be able to transfer, via [place], to his electric wheelchair and into their van. Worker collaborated with Dr Simpson regarding the above information. Patient will be able to discharge once the above services are set up.
--- NOTE | 2024-02-04 15:39 | NUR ---
drawer hardware worker spoke with Donna from [facility]. Donna will begin working this case.
--- NOTE | 2024-02-04 16:02 | NUR ---
social worker clinical received a call from [facility] regarding patient's discharge. SW explained patient would need IV line dressing changes. [facility] explained they could do the dressing changes but not administer the IV antibiotics. SW explained the team was working with [facility] to get the antibiotics arranged and patient's would administer the IV antibiotics daily. SW notified [facility] that [facility] would provide education to patient's on how to administer the medication. SW spoke with patient's that [facility] would provide education on how to administer the medication but [facility]. Discharge plan: Home with IV antibiotics
--- NOTE | 2024-02-04 16:26 | NUR ---
PATIENT BACK UP TO MEDICAL FLOOR AT APPROX 1620. VSS. ALERT AND ORIENTED. AND FRIEND AT BEDSIDE. PATIENT DENIES PAIN OR DISCOMFORT. RIGHT IJ COVERED WITH GAUZE AND TEGADERM IS CDI. DENIES FURTHER NEEDS OR CONCERNS AT THIS TIME.
--- NOTE | 2024-02-04 19:50 | NUR ---
Patient resting in bed with friend at bedside. Denies any pain or needs at this time. Assessment complete. IV in left hand flushes easliy without complicaitons. Right IJ flushes easily with good blood return from all ports. Call light and personal items in reach. Bed in low position.
[2024-02-05] VITALS (11 sets, daily range): BP systolic 95–110; BP diastolic 62–71; PULSE 78–89; TEMP 98.1–98.9
[2024-02-05 06:58] LABS: MEAN CELL VOLUME 89 fl (80.0-100.0); MEAN CORPUSCULAR HGB CONC 33 g/dl (33.0-37.0); MEAN PLATELET VOLUME 8.9 fl (7.4-10.4); PLATELET COUNT 258 K/mm3 (130-400); REDCELL DISTRIBUTION WIDTH-CV 14.3 % (11.5-14.5)
[2024-02-05 06:59] LABS: HEMATOCRIT 29.5 % (42.0-52.0); HEMOGLOBIN 9.7 g/dl (13.5-18.0); MEAN CORPUSCULAR HEMOGLOBIN 29 pg (27-31)
[2024-02-05 07:21] LABS: CREATININE, serum 0.54 mg/dL (0.72-1.25); POTASSIUM 4.1 mEq/L (3.5-4.5)
[2024-02-05 07:45] LABS: BAND 5 % (0-10); EOSINOPHIL 6 % (0-4); HYPOCHROMIA 1+; LYMPHOCYTE 25 % (20.0-51.0); METAMYELOCYTE 1 % (0-0); NEUTROPHILS 53 % (42.0-75.2); PLATELET ESTIMATE NORMAL (NORMAL)
--- NOTE | 2024-02-05 10:49 | NUR ---
SNAKER TRACTOR DRIVER received a phone call from [facility] about IV antibiotic. [facility] is not in network with pt insurance for this and [facility] will not be able to provide the IV. [facility] stated that [facility] is in network and a contact # is Yoko [phone]. SNAKER TRACTOR DRIVER left a message for Yoko. D/C: Home wit spouse and hospice
--- NOTE | 2024-02-05 12:02 | NUR ---
Report received DEYANIRA Leos; patient currently resting in bed, with no meds or fluids running through his central line or peripheral INT. Patient is on room air, has a suprapubic catheter, and a colostomy; no other lines or tubes are in place at this time.
[2024-02-06] VITALS (13 sets, daily range): BP systolic 95–142; BP diastolic 58–84; PULSE 68–81; TEMP 98.3–99.4
--- NOTE | 2024-02-06 00:40 | NUR ---
PT'S BP NOTED TO BE HIGHER THAN BASELINE AT MIDNIGHT CHECK. PT ASSISTED AT THIS TIME TO REPOSITION, SMOOTHED WRINKLES FROM BED AND REPOSITIONED SUPRAPUBIC CATHETER BAG TO ASSIST FOR BETTER DRAINAGE. VS RECHECKED AND FOUND TO BE CLOSER TO BASELINE AFTER ADJUSTMENTS.
[2024-02-06 06:26] LABS: CALCIUM 8.8 mg/dL (8.4-10.2); CREATININE, serum 0.5 mg/dL (0.72-1.25)
--- NOTE | 2024-02-06 09:00 | NUR ---
Assessment completed. Pt a/o x4. Bathing cares completed. Pt with upper and lower extremity contractures. Giraffe in place for patient to drink water independently. Quarter size sheer injury noted to mid right buttock. Mepilex applied. Mepilex dressings in place to bilateral heels- no wounds noted. Heels floated. Q2 hour turn schedule in place. Attempted to use wedge pillow but patient didn't tolerate. Phone call to Tamie, requesting she bring the patient's home wedge- per patient request. Suprapubic catheter in place- draining cloudy yellow urine. Pt reports that his urologist has him flush his sp cath twice daily and requests that this be done while he is here-will check with the provider for order. All 3 ports to right IJ with blood return and flush without complications- dressing CDI. Fall precautions in place.
--- NOTE | 2024-02-06 09:39 | NUR ---
SW met with patient, provided HH list for him to review and select preferred agencies to send referrals. [facility] selected [facility], and [facility] from [email or web address] list. SW will send referrals and follow up on acceptance, for updates for patient. Discharge plan: home (Wednesday) with HH.
--- NOTE | 2024-02-06 13:00 | NUR ---
PT DECLINING ACAPELLA USE THIS MORNING. NO SIGNS OF DISTRESS. BLBS CLEAR. VSS.
--- NOTE | 2024-02-06 18:21 | NUR ---
Pt repositioned q 2 hours with use of home foam wedge. Klonipin administered this afternoon for c/o anxiousness. Scheduled medications given throughout shift. Offered specialty mattress to patient but he wanted to think about it before making a decision since he will possibly go home tomorrow. Refuses SCDs. Different visitors at bedside throughout day. Pt pleasant and cooperative.
--- NOTE | 2024-02-06 21:00 | NUR ---
Patient resting in bed. Denies any pain at this time. Patient repositioned, needs met. Assessment complete. IJ to right neck flushes easily with good blood return from all ports. Call light and personal items in reach. Bed in low position.
[2024-02-07] VITALS (13 sets, daily range): BP systolic 94–118; BP diastolic 55–70; PULSE 75–88; TEMP 97.9–99.2
--- NOTE | 2024-02-07 05:40 | NUR ---
Patients caps on right IJ changed this morning without complications. No events over night.
[2024-02-07 06:10] LABS: HEMOGLOBIN 10.1 g/dl (13.5-18.0); MEAN CELL VOLUME 89 fl (80.0-100.0); MEAN CORPUSCULAR HEMOGLOBIN 29 pg (27-31); MEAN CORPUSCULAR HGB CONC 33 g/dl (33.0-37.0); MEAN PLATELET VOLUME 8.8 fl (7.4-10.4); PLATELET COUNT 344 K/mm3 (130-400); RED BLOOD COUNT 3.44 M/mm3 (4.20-5.60)
[2024-02-07 06:36] LABS: HEMATOCRIT 30.7 % (42.0-52.0)
[2024-02-07 06:39] LABS: ALBUMIN 3.3 g/dL (3.5-5.0); BILIRUBIN,TOTAL 0.5 mg/dL (0.2-1.2); CALCIUM 9.8 mg/dL (8.4-10.2); CREATININE, serum 0.57 mg/dL (0.72-1.25); MAGNESIUM 1.9 mg/dL (1.6-2.6); POTASSIUM 3.8 mEq/L (3.5-4.5); TOTAL PROTEIN 7.4 g/dl (6.2-8.1)
[2024-02-07 07:28] LABS: BAND 6 % (0-10); EOSINOPHIL 6 % (0-4); LYMPHOCYTE 24 % (20.0-51.0); NEUTROPHILS 59 % (42.0-75.2); OVALOCYTES 1+; PLATELET ESTIMATE NORMAL (NORMAL)
[2024-02-07 07:29] LABS: HYPOCHROMIA 1+
--- NOTE | 2024-02-07 08:50 | NUR ---
Pt. sitting up in bed. Pt. repositioned for comfort. Pt. is A&OX3, assessment complete. TLC to rt. IJ patent. Subrapubic catheter to dd with clear yellow urine noted. Cololstomy to llq noted. Pt. denies further needs, call light within reach.
--- NOTE | 2024-02-07 09:15 | NUR ---
bridge maintenance worker gave referrals, with faxed clinical information, to [facility] and [facility] as [place] notified us Wednesday that they were not in network. [facility] and [facility] were not taking weekend referrals, so they were sent this am. Will await to hear if these companies are in network and the medication costs. Worker met with patient and call spouse to advise of the above information. Worker met with Dr Simpson and Shanice Rodriguez and advised of the above information. Dr Simpson advises that patient will need the IV antibiotic for 5 more days.
[2024-02-07] MEDS ORDERED: MAXIPIME2 GM IV (09:32)
--- NOTE | 2024-02-07 10:53 | NUR ---
bingo worker faxed updates to [facility], noting that arrangements for IV ABOX are still being made. Discharge Plan: home with HH and IV Antibiotics
--- NOTE | 2024-02-07 13:06 | NUR ---
Anastacia with [facility] contacts this long term care social worker and advises all medications costs are covered 100% with no out of pocket costs. [facility] spoke with spouse and [facility] and confirmed that medications will be delivered to the patient's home on 02/08/24 at Noon, in time to receive his 2nd day dose at 2:00pm. Patient will receive his morning dose at the hospital tomorrow. Home Health nurse will be present at patient's house, prior to the dosing to help with education for spouse. Worker spoke with spouse regarding the above information. Worker faxed updated clinicals to [facility].
--- NOTE | 2024-02-07 16:31 | NUR ---
material requirements worker met with patient and spoke with spouse about plans for discharge tomorrow. Worker collaborated with patient's nurse and Adela Rodriguez regarding discharge plans for tomorrow.
--- NOTE | 2024-02-07 20:30 | NUR ---
UPON SHIFT ASSESSMENT, KOBE WAS AWAKE IN BED WITH VISITORS BEDSIDE. HE IS AXO X4 AND PLEASANT. SUPRAPUBIC CATHETER SITE CDI AND DRAINING YELLOW CLEAR AND OCCASIONALLY CLOUDY URINE. RIJ TRIPLE LUMEN FLUSHED WITH GOOD BLOOD RETURN, SITE IS CDI. COLOSTOMY BAG BURPED AND STOMA BRIGHT RED. KOBE C/O 11/23 BACK PAIN-21:00 MED PASS COMPLETE AND INCLUDED PAIN MEDS AND MUSCLE RELAXERS. VS ARE WNL. CALL LIGHT WITHIN REACH.
[2024-02-08 01:26] VITALS: BP_SYST 118
[2024-02-08 04:00] VITALS: BP 114/68; PULSE 68; TEMP 97.9
[2024-02-08 04:30] VITALS: BP_SYST 114
--- NOTE | 2024-02-08 04:47 | NUR ---
PATIENT CONTINUES TO REFUSE SCDs.
[2024-02-08 07:09] LABS: BASO # 0.1 K/mm3 (0.0-0.2); BASO % 1.2 % (0.0-2.0); EOS # 0.3 K/mm3 (0.0-0.7); GRAN # 3.2 K/mm3 (1.4-6.5); GRAN % 56.9 % (42.2-75.2); LYMPH # 1.4 K/mm3 (1.2-3.4); MEAN CELL VOLUME 90 fl (80.0-100.0); MEAN CORPUSCULAR HGB CONC 32 g/dl (33.0-37.0); MEAN PLATELET VOLUME 9.3 fl (7.4-10.4); MONO # 0.6 K/mm3 (0.1-0.6); PLATELET COUNT 369 K/mm3 (130-400); RED BLOOD COUNT 3.27 M/mm3 (4.20-5.60)
[2024-02-08 07:17] LABS: HEMATOCRIT 29.3 % (42.0-52.0); HEMOGLOBIN 9.5 g/dl (13.5-18.0); MEAN CORPUSCULAR HEMOGLOBIN 29 pg (27-31)
[2024-02-08 07:25] LABS: CALCIUM 9.6 mg/dL (8.4-10.2); CREATININE, serum 0.6 mg/dL (0.72-1.25)
[2024-02-08 07:50] VITALS: BP 136/78; PULSE 66; TEMP 97
[2024-02-08 09:00] VITALS: BP_SYST 136
--- NOTE | 2024-02-08 09:24 | NUR ---
child welfare caseworker attended clinical rounding and was informed pt can discharge today. AILEEN faxed discharge orders to [facility] and [facility] infusions. AILEEN spoke with RICHARD Prasad who requests pt to also have wound care. AILEEN spoke with Liliane at [facility] who confirmed they can do this. Discharge Plan: home with HH and IV ABOX
--- NOTE | 2024-02-08 10:42 | NUR ---
PT RESTING IN BED. AM MEDS GIVEN ORDERED. PT TOOK PILLS WHOLE WITH APPLESAUCE. PLAN ON DISCHARGE LATER TODAY AFTER HOME ABX DELIVERED FAMILY WILL COME TO [facility] MACHINE OPERATOR PT AND RETURN HOME WITH HOME HEALTH TO ASSIST WITH IV ABX.
[2024-02-08 11:26] VITALS: BP 101/64; PULSE 78; TEMP 98
--- NOTE | 2024-02-08 11:36 | NUR ---
MEPILEX CHANGED PER PT REQUEST. STAGE 1 TO RIGHT BUTTOCK KRYSTAL SIZE. FINIDHED GETTING PT DRESSED AND MAC CATHETER EMPTIED. CHECKED OSTOMY AND NO STOOL IN BAG.
--- NOTE | 2024-02-08 12:58 | NUR ---
REVIEWED DISCHARGE INSTRUCTIONS WITH PT AND FAMILY. QUESTIONS SOLICITED AND ANSWERED. TRANSFERED PT TO HOME WHEEL CHAIR PER [facility] WITH 3. POSTITIONED FOR COMFORT AND SAFETY. [facility] APPLIED PER PT INSRUCTIONS, PT LEFT FLOOR PER WHEEL CHAIR WITH STAFF.
== END 2024-02-08 12:10 | disposition home or self-care (01) | DRG 871 ==
LOC: COL.ER 16:30 → ICU 19:33 → MEDICAL 19:33
PROVIDERS: Emergency Medicine; Internal Medicine; Physician Assistant; ADMIT Hospitalist
PROC: 05HM33Z Insertion of Infusion Device into Right Internal Jugular Vein, Percutaneous Approach (ICD-10-PCS; principal; 2024-01-27)
DX: A41.9 Sepsis, unspecified organism (principal); G93.41 Metabolic encephalopathy; R65.21 Severe sepsis with septic shock; K72.00 Acute and subacute hepatic failure without coma; N39.0 Urinary tract infection, site not specified; E87.1 Hypo-osmolality and hyponatremia; B96.20 Unspecified Escherichia coli [E. coli] as the cause of diseases classified elsewhere; D69.6 Thrombocytopenia, unspecified; M62.838 Other muscle spasm; E87.6 Hypokalemia; E83.42 Hypomagnesemia; Z66 Do not resuscitate
CPT/HCPCS: A4314; A9284; C1751; J0360; J0692; J0744; J2470; J2543; J3370; J3475; J7030; J7050; J7060; Q3014